=== PATIENT | male | born 1980 | race Caucasian/White ===

== ENCOUNTER 2016-08-07 17:47 | Emergency (ER) | payer OTHER ==
[~2016-08-07 17:47] MED LIST: ALBUTEROL17 G1 IH; ALBUTEROL17 GM; ALBUTEROL17 GM INH; AUGMENTIN PO; CIPRO250 MG PO; DOXYCYCLINE PO; FLEXERIL PO; FLEXERIL10 MG PO; IBUPROFEN PO; IBUPROFEN800 MG PO; LORTAB 5/500 TA1 TA1 PO; MEDROL DOSEPAK4 MG DOB; MEDROL PO; MEDROL4 MG/DOSE- PO; NO MEDICATIONS; PHENERGAN DM1 ML PO; PHENERGAN W/CO120 ML PO; PREDNISONE PO; PREDNISONE10 MG/DOSE PO; PREDNISONE5 M1 PO; PROVENTIL0.83 MG/ML IH; TESSALON200 MG PO; TUSSIN MAX15 MG/5 M1 PO; ULTRAM PO; VIBRAMYCIN100 M1 PO; VICODIN 5-3001 EACH; VICODIN 5/1 TAB 5/50 PO; VOLTAREN75 MG PO
[2016-08-07] MEDS ORDERED: FLEXERIL10 MG PO (18:53)
[2016-08-07] MEDS ORDERED: HYDROCODONE/APA1 T16 PO (18:53)
== END 2016-08-07 18:53 | disposition home or self-care (01) ==
LOC: SED 17:47
DX: Z09 Encounter for follow-up examination after completed treatment for conditions other than malignant neoplasm (principal); J45.909 Unspecified asthma, uncomplicated; F17.210 Nicotine dependence, cigarettes, uncomplicated; Z79.899 Other long term (current) drug therapy
CPT/HCPCS: 99283